=== PATIENT | male | born 1995 ===

== ENCOUNTER 2022-06-14 02:10 | Emergency (ER) | payer OTHER ==
[2022-06-14 02:15] VITALS: BP 152/103; PULSE 65; RESP 18; TEMP 97.8
[2022-06-14] MEDS ORDERED: ACETAMINOPHEN TAB 500 MG TAB PO STA (02:23)
[2022-06-14] MEDS ORDERED: IBUPROFEN 400 MG TAB PO STA (02:23)
--- NOTE | 2022-06-14 02:26 | ED ---
Fall HPI - General Chief Complaint: Fall Stated Complaint: Fall, RT wrist and knee pain Time Seen by Provider: 06/14/22 02:14 Source: patient Mode of arrival: ambulatory - History of Present Illness Initial Comments: This is a pleasant [id number] 26-year-old male who tripped and fell at home. Patient states that he put his right hand out to stop himself. Patient did hit his right knee but that has improved. Patient complaining of pain to the ulnar aspect of his hand. Pain is exacerbated by movement, alleviated by rest. Patient did not take any medications prior to arrival. There was no head or neck injury. Patient has no health problems. Patient not on blood thinners. No headache, no fever or chills, no changes in vision or hearing, no sore throat or difficulty with speech, no neck pain, no chest pain or shortness of breath, no abdominal pain, no nausea or vomiting, no changes in urination or bowel movements, no numbness or tingling, no skin rashes or lesions. Past medical, surgical, social, and family history reviewed. MD Complaint: fall - Related Data Previous Rx's Medication Instructions Recorded Acetaminophen Tab [Tylenol Tab] 500 mg PO Q6H PRN #24 tablet 06/14/22 Ibuprofen [Motrin] 600 mg PO Q8HR PRN #30 tab 06/14/22 Allergies Allergy/AdvReac Type Severity Reaction Status Date / Time No Known Allergies Allergy Verified 06/14/22 02:15 Review of Systems ROS Statement: Those systems with pertinent positive or pertinent negative responses have been documented in the HPI. ROS Other: All systems not noted in ROS Statement are negative. Past Medical History Past Medical History: No Reported History History of Any Multi-Drug Resistant Organisms: None Reported Past Surgical History: No Surgical Hx Reported Past Psychological History: No Psychological Hx Reported Smoking Status: Current every day smoker Past Alcohol Use History: Occasional Past Drug Use History: Marijuana General Exam - General Exam Comments Initial Comments: Healthy-appearing male no acute distress. Patient does not appear to be ill or toxic. Limitations: no limitations General appearance: alert, in no apparent distress Head exam: Present: atraumatic, normocephalic, normal inspection Eye exam: Present: normal appearance, PERRL, EOMI. Absent: scleral icterus, conjunctival injection, periorbital swelling ENT exam: Present: normal exam Neck exam: Present: normal inspection, full ROM. Absent: tenderness Respiratory exam: Present: normal lung sounds bilaterally. Absent: respiratory distress, wheezes, rales, rhonchi, stridor Cardiovascular Exam: Present: regular rate, normal rhythm, normal heart sounds. Absent: systolic murmur, diastolic murmur, rubs, gallop, clicks GI/Abdominal exam: Present: soft. Absent: tenderness Extremities exam: Present: normal inspection, full ROM, tenderness (Patient has some tenderness just proximal to the fifth metacarpal on the right hand. No break in skin integrity. No crepitus. No tenderness elsewhere.), normal capillary refill, other (Full range of motion all major joints. Full strength in all major muscle groups. No other orthopedic injuries.). Absent: pedal edema, joint swelling Back exam: Present: normal inspection, full ROM. Absent: tenderness Neurological exam: Present: alert, oriented X3, CN II-XII intact, normal gait. Absent: abnormal gait, motor sensory deficit Psychiatric exam: Present: normal affect, normal mood Skin exam: Present: warm, dry, intact, normal color. Absent: rash Course Vital Signs 06/14/22 02:12 Temperature 97.8 F Pulse Rate 65 Respiratory 18 Rate Blood Pressure 152/103 O2 Sat by Pulse 98 Oximetry Medical Decision Making - Medical Decision Making Isolated injury to the right hand after a fall on a outstretched hand. No other injuries. X-rays ordered X-rays read by me reveal no evidence of acute pathology. No fracture. No foreign body. No soft tissue changes. No dislocation. Awaiting radiology interpretation. Patient was told to return to the ER for any signs or symptoms worsen. Told to return immediately if any other problems arise. All questions answered. Treatment plan discussed. Patient in agreement Every effort has been made to ensure accuracy of this dictation. However, due to the limitations of electronic medical records and dictation devices, errors in charting still occur. The case was discussed in detail with ED attending physician. Presentation, findings, treatment plan discussed in detail. Alejandro wrap applied, distal neurovascular status intact both pre-and post- application. Instructional Developer Dr. Samayoa Disposition Clinical Impression: Sprain of carpometacarpal (CMC) joint of right hand Disposition: HOME SELF-CARE Condition: Good Instructions (If sedation given, give patient instructions): Hand Sprain (ED) Additional Instructions: Follow-up with your regular physician as directed. Return to the ER immediately if any symptoms worsen, new symptoms arise, or any other problems develop. Prescriptions: Ibuprofen [Motrin] 600 mg PO Q8HR PRN #30 tab PRN Reason: Pain Acetaminophen Tab [Tylenol Tab] 500 mg PO Q6H PRN #24 tablet PRN Reason: Pain Is patient prescribed a controlled substance at d/c from ED?: No Referrals: Jonas Arauz MD [STAFF PHYSICIAN] - 06/20/22 Time of Disposition: 03:01
--- NOTE | 2022-06-14 03:11 | XR ---
EXAMINATION TYPE: XR hand complete RT DATE OF EXAM: 06/14/2022 COMPARISON: NONE HISTORY: Pain TECHNIQUE: 3 views FINDINGS: The metacarpals are intact. Carpal bones are intact. I see no fracture nor dislocation. Abigail nt spaces are normal. IMPRESSION: Negative right hand exam. No fracture.
== END 2022-06-14 03:14 | disposition home or self-care (01) ==
LOC: EC 02:10
DX: S63.656A Sprain of metacarpophalangeal joint of right little finger, initial encounter (principal); F17.200 Nicotine dependence, unspecified, uncomplicated; W01.0XXA Fall on same level from slipping, tripping and stumbling without subsequent striking against object, initial encounter
CPT/HCPCS: 99283